=== PATIENT | male | born 1960 | race Caucasian/White ===

== ENCOUNTER 2020-10-07 10:35 | Emergency (ER) | payer OTHER ==
[~2020-10-07] VITALS: Ht 172.7 cm; Wt 135.6 kg
[~2020-10-07 10:35] MED LIST: BUSPIRONE HCL15 MG PO; COZAAR100 MG PO; FLONASE ALLER15.8 ML; MELOXICAM15 MG PO; NORVASC5 MG PO; VISTARIL 25 MG25 MG PO; ZOLOFT50 MG PO
[2020-10-07 12:14] LABS: HEMOGLOBIN 10.9 gm/dl (14.0-17.5); RED BLOOD COUNT 3.62 M/UL (4.20-5.50); WHITE BLOOD COUNT 10.2 K/UL (4.5-11.0)
[2020-10-07 12:56] LABS: BUN/CREATININE RATIO 9 (0-10)
[2020-10-07] MEDS ORDERED: VIBRAMYCIN 100100 MG PO (15:08)
[2020-10-07] MEDS ORDERED: AUGMENTIN 875-1 EACH PO (15:08)
[2020-10-07] MEDS ORDERED: LASIX40 MG PO (15:09)
[2020-10-07] MEDS ORDERED: POTASSIUM CHLO10 MEQ PO (15:09)
[2020-10-07] MEDS ORDERED: ROXICODONE TAB 55 MG PO (15:10)
[2020-10-07] MEDS ORDERED: TRESIBA FL100 UNIT/1 SC (15:10)
[2020-10-07] MEDS ORDERED: ZYRTEC10 MG PO (15:11)
[2020-10-07] MEDS ORDERED: VITAMIN D21250 MCG PO (15:11)
[2020-10-07] MEDS ORDERED: ASPIRIN EC81 MG PO (15:11)
[2020-10-07] MEDS ORDERED: DESITIN CREAM 660 GM TOP (15:12)
[2020-10-07] MEDS ORDERED: FISH OIL 1,0001 EACH PO (15:12)
[2020-10-07] MEDS ORDERED: LIPITOR TAB 2020 MG PO (21:50)
[2020-10-07] MEDS ORDERED: GLUCOPHAGE XR500 MG PO (21:54)
[2020-10-07] MEDS ORDERED: VICTOZA 1818 MG/3 ML SC (21:55)
== END 2020-10-07 18:20 | disposition home or self-care (01) ==
LOC: ER1 10:35 → ZEROF 14:23 → ER1 18:20
PROVIDERS: Emergency Medicine
DX: T85.638A Leakage of other specified internal prosthetic devices, implants and grafts, initial encounter (principal); J18.9 Pneumonia, unspecified organism; R91.8 Other nonspecific abnormal finding of lung field; J90 Pleural effusion, not elsewhere classified; J86.9 Pyothorax without fistula; G47.33 Obstructive sleep apnea (adult) (pediatric); E11.9 Type 2 diabetes mellitus without complications; I10 Essential (primary) hypertension; Z79.82 Long term (current) use of aspirin; Z79.84 Long term (current) use of oral hypoglycemic drugs; Z79.899 Other long term (current) drug therapy; Z87.891 Personal history of nicotine dependence; Y82.8 Other medical devices associated with adverse incidents; Z20.822 Contact with and (suspected) exposure to COVID-19
CPT/HCPCS: 71046; 80053; 82550; 82553; 82962; 83874; 84484; 85025; 87040; 96365; 96366; 96375; 96376; 99283; J0692; J3370; J7070; U0002

== ENCOUNTER → 2020-10-23 | Outpatient (CLI) | payer OTHER ==
[~2020-10-23] MED LIST changes: +ASPIRIN EC81 MG PO; +AUGMENTIN 875-1 EACH PO; +DESITIN CREAM 660 GM TOP; +FISH OIL 1,0001 EACH PO; +GLUCOPHAGE XR500 MG PO; +LASIX40 MG PO; +LIPITOR TAB 2020 MG PO; +POTASSIUM CHLO10 MEQ PO; +ROXICODONE TAB 55 MG PO; +TRESIBA FL100 UNIT/1 SC; +VIBRAMYCIN 100100 MG PO; +VICTOZA 1818 MG/3 ML SC; +VITAMIN D21250 MCG PO; +ZYRTEC10 MG PO
== END ==
LOC: KOH-I 14:21
DX: Z09 Encounter for follow-up examination after completed treatment for conditions other than malignant neoplasm (principal); Z87.09 Personal history of other diseases of the respiratory system; J90 Pleural effusion, not elsewhere classified; R91.8 Other nonspecific abnormal finding of lung field
CPT/HCPCS: 71250

== ENCOUNTER → 2021-11-25 | Outpatient (CLI) | payer MEDICARE, OTHER | LOC: KOH-I 16:11 | DX: R06.02 Shortness of breath (principal) | CPT/HCPCS: 71046 ==